=== PATIENT | male | born 1960 | race Caucasian/White ===

== ENCOUNTER → 2017-11-30 | Outpatient (CLI) | payer OTHER ==
[~2017-11-30] MED LIST: GADOBUTROL 10 MMOL/10 ML PFS ONE
== END | disposition home or self-care (01) ==
LOC: CFH 08:55
PROVIDERS: ATTEND Family Medicine
DX: I72.9 Aneurysm of unspecified site (principal)
CPT/HCPCS: 70544; 70553; A9585